=== PATIENT | female | born 1940 ===

== ENCOUNTER → 2017-10-09 | Day surgery (SDC) | payer OTHER ==
[~2017-10-09] MED LIST: FORTAMET1000 MG PO; GLIPIZIDE10 MG PO; LAMOTRIGINE25 M1 PO; PLAVIX75 MG PO; SERTRALINE HCL50 MG PO; SYNTHROID100 MCG PO; VERAPAMIL ER240 MG PO; XANAX0.25 MG PO
== END | disposition home or self-care (01) ==
LOC: CIR.AMB 06:32
DX: K64.8 Other hemorrhoids (principal)